=== PATIENT | female | born 1990 | race Hispanic/Latino ===

== ENCOUNTER 2017-07-04 07:03 | Inpatient (IN) | payer MEDICAID ==
[~2017-07-04] VITALS: Ht 160 cm; Wt 84.8 kg
[2017-07-04 07:55] LABS: APPEARANCE,URINE Clear (CLEAR); BILIRUBIN,URINE Negative (NEGATIVE); COLOR,URINE Yellow (YELLOW); GLUCOSE, URINE (UA) Negative (NEGATIVE); KETONES,URINE Negative (NEGATIVE); LEUKOCYTE ESTERASE ,URINE Trace (NEGATIVE); NITRATE,URINE Negative (NEGATIVE); OCCULT BLOOD,URINE Trace (NEGATIVE); PH,URINE 5.5 (5.0-8.0); PROTEIN,URINE Negative (NEGATIVE); UROBILINOGEN,URINE 0.2 mg/dL (0.2-1.0)
[2017-07-04 08:02] LABS: BACTERIA,URINE Rare /HPF (None Seen); RBC,URINE 0-1 /HPF (0-1); SQUAMOUS EPITHELIAL CELL,UR Few /LPF (0-2); WBC,URINE 0-1 /HPF (0-1)
[2017-07-04] MEDS ORDERED: LACTATED RINGERS 1000ML 1,000 ML IV PRN (08:45)
[2017-07-04 08:56] LABS: HEMATOCRIT 31.4 % (36-48); MEAN CORPUSCULAR HEMOGLOBIN 25.5 pg (27.0-33.0); MEAN CORPUSCULAR HGB CONC 34.1 g/dL (32.0-36.0); MEAN CORPUSCULAR VOLUME 74.7 fL (79-99); PLATELET COUNT (AUTO) 238 K/uL (130-400); RED CELL DISTRIBUTION WIDTH 13.9 % (11.0-15.5); WHITE BLOOD COUNT (AUTO) 10.7 K/uL (4.8-10.8)
[2017-07-04] MEDS ORDERED: LACTATED RINGERS 1000ML 1,000 ML IV ONE ×2 (09:04)
[2017-07-04] MEDS ORDERED: OXYTOCIN 10 USP UNITS/ML ONE ×2 (09:04)
[2017-07-04] MEDS: OXYTOCIN 10 USP UNITS/ML 20 UNIT in LACTATED RINGERS 1000ML 1,000 ML IV SCH ×2 (09:10→16:00)
[2017-07-04] MEDS: PROMETHAZINE HCL 25 MG/ML 1ML AMPULE IM SCH ×2 (14:28→20:11)
[2017-07-04] MEDS ORDERED: MEPERIDINE-PF 50 MG/ML SYG IVP ONE (14:30)
[2017-07-04] MEDS ORDERED: LANOLIN 30GM OINTMENT TP PRN (16:00)
[2017-07-04] MEDS ORDERED: WITCH HAZEL 1 PAD TP PRN (16:00)
[2017-07-04] MEDS ORDERED: DIPH,PERTUSS(ACELL),TET VAC/PF 0.5 ML VIAL IM PRN (16:00)
[2017-07-04] MEDS ORDERED: ACETAMINOPHEN 325 MG TAB PO PRN (16:00)
[2017-07-04] MEDS ORDERED: MEASLES/MUMPS/RUBELLA VACCINE, LIVE 0.5 ML/VIAL SQ PRN (16:00)
[2017-07-04] MEDS ORDERED: OXYTOCIN-LR 20 UNITS/1000 ML 1,000 ML IV SCH (16:00)
[2017-07-04] MEDS ORDERED: BENZOCAINE/LANOLIN/ALOE VERA 60 ML AEROSOL TP PRN (16:00)
[2017-07-04] MEDS: IBUPROFEN 800 MG TAB PO PRN (16:50)
[2017-07-04 17:37] VITALS: BP 114/68
[2017-07-04 19:43] VITALS: BP 97/54
[2017-07-04] MEDS: DOCUSATE SODIUM 100 MG CAP PO SCH (20:36)
[2017-07-04 23:06] VITALS: BP 98/52
[2017-07-05 03:10] VITALS: BP 96/46
[2017-07-05] MEDS: IBUPROFEN 800 MG TAB PO PRN (04:17)
[2017-07-05 05:30] LABS: HEMATOCRIT 29.7 % (36-48); MEAN CORPUSCULAR HEMOGLOBIN 25.3 pg (27.0-33.0); MEAN CORPUSCULAR HGB CONC 33.5 g/dL (32.0-36.0); MEAN CORPUSCULAR VOLUME 75.6 fL (79-99); PLATELET COUNT (AUTO) 254 K/uL (130-400); RED BLOOD CELL COUNT(AUTO) 3.93 MIL/uL (4.00-5.50); RED CELL DISTRIBUTION WIDTH 13.7 % (11.0-15.5)
[2017-07-05 07:28] LABS: HEPATITIS Bs ANTIGEN SCREEN P Negative (Negative)
[2017-07-05 07:35] VITALS: BP 94/55
[2017-07-05] MEDS: DOCUSATE SODIUM 100 MG CAP PO SCH (09:21)
[2017-07-05 11:27] VITALS: BP 102/58
[2017-07-05 16:15] VITALS: BP 97/58
== END 2017-07-05 17:10 | disposition home or self-care (01) | DRG 560 ==
LOC: LDH 07:03 → OBSVTOIN 07:03 → WSH 17:35
PROVIDERS: ADMIT Obstetrics & Gynecology; ATTEND Obstetrics & Gynecology
PROC: 10E0XZZ Delivery of Products of Conception, External Approach (ICD-10-PCS; principal; 2017-07-04)
PROC: 10907ZC Drainage of Amniotic Fluid, Therapeutic from Products of Conception, Via Natural or Artificial Opening (ICD-10-PCS; 2017-07-04)
PROC: 3E033VJ Introduction of Other Hormone into Peripheral Vein, Percutaneous Approach (ICD-10-PCS; 2017-07-04)
PROC: 3E0234Z Introduction of Serum, Toxoid and Vaccine into Muscle, Percutaneous Approach (ICD-10-PCS; 2017-07-04)
PROC: 3E0134Z Introduction of Serum, Toxoid and Vaccine into Subcutaneous Tissue, Percutaneous Approach (ICD-10-PCS; 2017-07-04)
DX: O69.81X0 Labor and delivery complicated by cord around neck, without compression, not applicable or unspecified (principal); Z23 Encounter for immunization; Z37.0 Single live birth; Z3A.39 39 weeks gestation of pregnancy
CPT/HCPCS: 36415; 81001; 85027; 86592; 86850; 86900; 86901; 87340; 90715; A4606; J2175; J2550; J2590; J7120

== ENCOUNTER 2019-09-29 08:02 | Observation (INO) | payer MEDICAID ==
[~2019-09-29] VITALS: Ht 160 cm; Wt 96.6 kg
[2019-09-29] MEDS ORDERED: CEFTRIAXONE SODIUM 500 MG VIAL IV SCH (09:00)
[2019-09-29] MEDS ORDERED: LACTATED RINGERS 1000ML 1,000 ML IV SCH (09:00)
[2019-09-29] MEDS ORDERED: CEFTRIAXONE SODIUM 1 GM IV SCH (09:15)
[2019-09-29 09:18] LABS: APPEARANCE,URINE Cloudy (CLEAR); BILIRUBIN,URINE Negative (NEGATIVE); COLOR,URINE Dark Yellow (YELLOW); GLUCOSE, URINE (UA) Negative (NEGATIVE); KETONES,URINE Negative (NEGATIVE); LEUKOCYTE ESTERASE ,URINE Small (NEGATIVE); NITRATE,URINE Negative (NEGATIVE); OCCULT BLOOD,URINE Negative (NEGATIVE); PROTEIN,URINE Trace mg/dL (NEGATIVE)
[2019-09-29 09:47] LABS: BACTERIA,URINE Few /HPF (None Seen); SQUAMOUS EPITHELIAL CELL,UR 30-50 /HPF (0-2)
== END 2019-09-29 10:20 | disposition home or self-care (01) ==
LOC: EDH 08:02 → LDH 08:03
PROVIDERS: ADMIT Obstetrics & Gynecology; ATTEND Obstetrics & Gynecology
DX: O26.893 Other specified pregnancy related conditions, third trimester (principal); Z3A.36 36 weeks gestation of pregnancy
CPT/HCPCS: 81001; 96374; 99284; G0378 ×2; J0696; J7120 ×2; 96360

== ENCOUNTER 2019-09-30 16:02 | Observation (INO) | payer MEDICAID ==
[2019-09-30 16:40] LABS: APPEARANCE,URINE Cloudy (CLEAR); BILIRUBIN,URINE Negative (NEGATIVE); COLOR,URINE Dark Yellow (YELLOW); GLUCOSE, URINE (UA) Negative (NEGATIVE); KETONES,URINE Negative (NEGATIVE); LEUKOCYTE ESTERASE ,URINE Negative (NEGATIVE); NITRATE,URINE Negative (NEGATIVE); OCCULT BLOOD,URINE Negative (NEGATIVE); PROTEIN,URINE Trace mg/dL (NEGATIVE)
[2019-09-30 17:15] LABS: BACTERIA,URINE Few /HPF (None Seen); RBC,URINE 0-1 /HPF (0-1); WBC,URINE 0-1 /HPF (0-1)
[2019-09-30 17:16] LABS: AMORPHOUS SEDIMENT,UR Moderate /LPF (None Seen); SQUAMOUS EPITHELIAL CELL,UR Few /HPF (0-2)
[2019-09-30] MEDS ORDERED: LACTATED RINGERS 1000ML 1,000 ML IV SCH (18:00)
[2019-09-30] MEDS ORDERED: LACTATED RINGERS 1000ML IV SCH (18:00)
== END 2019-09-30 19:40 | disposition home or self-care (01) ==
LOC: LDH 16:02
PROVIDERS: ADMIT Obstetrics & Gynecology; ATTEND Obstetrics & Gynecology
DX: O26.893 Other specified pregnancy related conditions, third trimester (principal); R10.30 Lower abdominal pain, unspecified; Z3A.37 37 weeks gestation of pregnancy
CPT/HCPCS: 81001; A4606; G0378 ×3; J7120; 96360; 96361

== ENCOUNTER 2019-10-03 10:36 | Inpatient (IN) | payer MEDICAID ==
[~2019-10-03] VITALS: Ht 160 cm; Wt 97.1 kg
[2019-10-03] MEDS ORDERED: LACTATED RINGERS 1000ML 1,000 ML IV ONE (11:22)
[2019-10-03] MEDS ORDERED: LACTATED RINGERS 1000ML 1,000 ML IV PRN (11:26)
[2019-10-03] MEDS ORDERED: AMPICILLIN 2GM+NS 100ML 100 ML IV SCH (11:30)
[2019-10-03] MEDS ORDERED: OXYTOCIN-LR 20 UNITS/1000 ML 1,000 ML IV ONE ×2 (11:51→19:25)
[2019-10-03 11:57] LABS: HEMATOCRIT 36.1 % (36-48); MEAN CORPUSCULAR HGB CONC 32.4 g/dL (32.0-36.0); MEAN CORPUSCULAR VOLUME 77.1 fL (79-99); PLATELET COUNT (AUTO) 287 K/uL (130-400); RED BLOOD CELL COUNT(AUTO) 4.68 MIL/uL (4.00-5.50); RED CELL DISTRIBUTION WIDTH 13.7 % (11.0-15.5); WHITE BLOOD COUNT (AUTO) 9.4 K/uL (4.8-10.8)
[2019-10-03 12:08] LABS: APPEARANCE,URINE CLEAR (CLEAR); BILIRUBIN,URINE NEGATIVE (NEGATIVE); COLOR,URINE YELLOW (YELLOW); GLUCOSE, URINE (UA) NEGATIVE (NEGATIVE); KETONES,URINE NEGATIVE (NEGATIVE); LEUKOCYTE ESTERASE ,URINE NEGATIVE (NEGATIVE); NITRATE,URINE NEGATIVE (NEGATIVE); OCCULT BLOOD,URINE NEGATIVE (NEGATIVE); PH,URINE 5.5 (5.0-8.0); PROTEIN,URINE TRACE mg/dL (NEGATIVE); UROBILINOGEN,URINE 0.2 mg/dL (0.2-1.0)
[2019-10-03] MEDS: OXYTOCIN 10 USP UNITS/ML 20 UNIT in LACTATED RINGERS 1000ML 1,000 ML IV SCH ×2 (12:09→19:38)
[2019-10-03 12:20] LABS: RAPID PLASMA REAGIN NONREACTIVE (NONREACTIVE)
[2019-10-03 12:33] LABS: BACTERIA,URINE Rare /HPF (None Seen); MUCUS,URINE Many LPF (None Seen); RBC,URINE 0-1 /HPF (0-1); SQUAMOUS EPITHELIAL CELL,UR Many /HPF (0-2)
[2019-10-03] MEDS: PROMETHAZINE HCL 25 MG/ML 1ML AMPULE IM SCH ×2 (16:04→19:33)
[2019-10-03] MEDS: MEPERIDINE-PF 50 MG/ML SYG IVP SCH ×2 (16:04→19:35)
[2019-10-03] MEDS: AMPICILLIN 1GM+NS 50ML 50 ML IV SCH ×3 (16:04→23:30)
[2019-10-03] MEDS ORDERED: MEPERIDINE-PF 50 MG/ML SYG IVP SCH (19:30)
[2019-10-03] MEDS ORDERED: PROMETHAZINE HCL 25 MG/ML 1ML AMPULE IM SCH (19:30)
[2019-10-03] MEDS ORDERED: LIDOCAINE HCL 1% 20 ML VIAL ONE (20:04)
[2019-10-03] MEDS ORDERED: BENZOCAINE/LANOLIN/ALOE VERA 60 ML AEROSOL TP PRN (22:00)
[2019-10-03] MEDS ORDERED: DIPH,PERTUSS(ACELL),TET VAC/PF 0.5 ML VIAL IM PRN (22:00)
[2019-10-03] MEDS ORDERED: WITCH HAZEL 1 PAD TP PRN (22:00)
[2019-10-03] MEDS ORDERED: ACETAMINOPHEN 325 MG TAB PO PRN (22:00)
[2019-10-03] MEDS ORDERED: OXYTOCIN-LR 20 UNITS/1000 ML 1,000 ML IV SCH (22:00)
[2019-10-03] MEDS ORDERED: LANOLIN 30GM OINTMENT TP PRN (22:00)
[2019-10-03] MEDS ORDERED: MEASLES/MUMPS/RUBELLA VACCINE, LIVE 0.5 ML/VIAL SQ PRN (22:00)
[2019-10-03] MEDS ORDERED: ACETAMINOPHEN-CODEINE 300/30MG TAB PO PRN (22:00)
[2019-10-03] MEDS ORDERED: IBUPROFEN 600 MG TABLET ONE (22:33)
--- NOTE | 2019-10-03 23:00 | NUR ---
Report received from Flori Allen RN; Patient came in via wheelchair with IV of LR with 20 units Pitocin infusing well. Patient and oriented to room, call light given. Plan of care discussed with them both verbalizes understanding.
[2019-10-03 23:23] VITALS: BP 106/57
[2019-10-04 03:29] VITALS: BP 92/47
[2019-10-04] MEDS: AMPICILLIN 1GM+NS 50ML 50 ML IV SCH (03:30)
[2019-10-04] MEDS: IBUPROFEN 600 MG TABLET PO PRN ×2 (04:20→09:12)
[2019-10-04 05:38] LABS: HEMATOCRIT 31.7 % (36-48); MEAN CORPUSCULAR HEMOGLOBIN 24.4 pg (27.0-33.0); MEAN CORPUSCULAR HGB CONC 31.5 g/dL (32.0-36.0); MEAN CORPUSCULAR VOLUME 77.5 fL (79-99); RED BLOOD CELL COUNT(AUTO) 4.09 MIL/uL (4.00-5.50); RED CELL DISTRIBUTION WIDTH 13.6 % (11.0-15.5); WHITE BLOOD COUNT (AUTO) 14.6 K/uL (4.8-10.8)
[2019-10-04 07:13] LABS: HEPATITIS Bs ANTIGEN SCREEN P Negative (Negative)
[2019-10-04 07:54] VITALS: BP 97/55
--- NOTE | 2019-10-04 08:30 | NUR ---
Flori MILLER CNM ROUNDED AND DISCHARGED PT TO HOME. PATIENT STABLE.
[2019-10-04] MEDS ORDERED: DOCUSATE SODIUM 100 MG CAP PO SCH (09:00)
[2019-10-04 11:42] VITALS: BP 106/50
[2019-10-04 16:40] VITALS: BP 97/54
--- NOTE | 2019-10-04 17:30 | NUR ---
DISCHARGE INSTRUCTIONS GIVEN AND SCRIPT FOR PAIN MANAGEMENT AT HOME GIVEN TO PATIENT. PATIENT AWAITING DISCHARGE ON BABY.
--- NOTE | 2019-10-04 18:30 | NUR ---
PATIENT WAS TAKEN VIA W/C CARRYING BABY IN ARMS TO FAMILY VEHICLE AND WERE BOTH DISCHARGED TO SIGNIFICANT OTHER. PATIENT STABLE AND DENIES PAIN.
== END 2019-10-04 18:30 | disposition home or self-care (01) | DRG 560 ==
LOC: LDH 10:36 → OBSVTOIN 10:36 → LDH 12:14 → WSH 23:10
PROVIDERS: ADMIT Obstetrics & Gynecology; ATTEND Obstetrics & Gynecology
PROC: 10E0XZZ Delivery of Products of Conception, External Approach (ICD-10-PCS; principal; 2019-10-03)
PROC: 3E0234Z Introduction of Serum, Toxoid and Vaccine into Muscle, Percutaneous Approach (ICD-10-PCS; 2019-10-03)
PROC: 3E0134Z Introduction of Serum, Toxoid and Vaccine into Subcutaneous Tissue, Percutaneous Approach (ICD-10-PCS; 2019-10-03)
PROC: 10907ZC Drainage of Amniotic Fluid, Therapeutic from Products of Conception, Via Natural or Artificial Opening (ICD-10-PCS; 2019-10-03)
PROC: 3E033VJ Introduction of Other Hormone into Peripheral Vein, Percutaneous Approach (ICD-10-PCS; 2019-10-03)
DX: O99.824 Streptococcus B carrier state complicating childbirth (principal); Z37.0 Single live birth; O69.81X0 Labor and delivery complicated by cord around neck, without compression, not applicable or unspecified; Z23 Encounter for immunization; Z3A.37 37 weeks gestation of pregnancy
CPT/HCPCS: 36415; 81001; 85027; 86592; 86701; 86850; 86900; 86901; 87340; 87390; 96360; 96361; A4606; G0378; J0290; J2175; J2550; J2590; J7120

== ENCOUNTER 2023-07-23 14:37 | Emergency (ER) | payer MEDICAID, OTHER ==
[~2023-07-23] VITALS: Ht 157.5 cm; Wt 90.7 kg
[2023-07-23 15:37] LABS: SARS-CoV-2, RNA, NAAT NEGATIVE SARS CoV-2 (NEGATIVE)
[2023-07-23 15:45] LABS: INFLUENZA TYPE A Negative For Type A (NEGATIVE)
[2023-07-23 15:47] LABS: INFLUENZA TYPE B Positive For Type B (NEGATIVE)
[2023-07-23 15:48] LABS: RAPID GROUP A STREP positive (NEGATIVE)
[2023-07-23] MEDS ORDERED: OFLO5DRO21 OT (16:11)
[2023-07-23] MEDS ORDERED: AMOX1TAB16 PO (16:11)
[2023-07-23] MEDS ORDERED: IBUP-2077 PO (16:11)
[2023-07-23] MEDS ORDERED: OSEL75 PO (16:11)
[2023-07-23] MEDS: ACETAMINOPHEN 500 MG TABLET PO ONE (16:24)
[2023-07-23 16:25] VITALS: BP 130/81; PULSE 97; RESP 18; O2SAT 98
== END 2023-07-23 16:40 | disposition home or self-care (01) ==
LOC: EDH 14:37
DX: J10.1 Influenza due to other identified influenza virus with other respiratory manifestations (principal); J02.0 Streptococcal pharyngitis; R50.9 Fever, unspecified; H60.91 Unspecified otitis externa, right ear; Z20.822 Contact with and (suspected) exposure to COVID-19
CPT/HCPCS: 87635; 87804; 87880